=== PATIENT | male | born 1950 | race African-American/Black ===

== ENCOUNTER 2023-03-07 10:26 | Emergency (ER) | payer MEDICARE, MEDICAID ==
[~2023-03-07] VITALS: Ht 175.3 cm; Wt 73.9 kg
[2023-03-07 10:43] VITALS: BP 130/82; PULSE 106; RESP 16; TEMP 98.5; O2SAT 98
[2023-03-07] MEDS ORDERED: ACETAMINOPHEN 325MG TABLET PO ONE (11:45)
[2023-03-07] MEDS ORDERED: TOPUD MT (11:50)
== END 2023-03-07 12:34 | disposition home or self-care (01) ==
LOC: ER 10:26
DX: M25.512 Pain in left shoulder (principal); W07.XXXA Fall from chair, initial encounter; Y93.89 Activity, other specified; Y92.89 Other specified places as the place of occurrence of the external cause; Y99.8 Other external cause status
CPT/HCPCS: 73030; 99283

== ENCOUNTER 2024-01-22 10:14 | Emergency (ER) | payer MEDICARE, MEDICAID ==
[~2024-01-22] VITALS: Ht 172.7 cm; Wt 76.0 kg
[~2024-01-22 10:14] MED LIST: TOPUD MT
[2024-01-22 10:16] VITALS: O2SAT 100
[2024-01-22] MEDS: ACETAMINOPHEN 325MG TABLET PO ONE (11:39)
[2024-01-22] MEDS: LIDOCAINE 5% PATCH TOP STA (11:40)
[2024-01-22] MEDS ORDERED: METH-773 MT (14:32)
[2024-01-22] MEDS ORDERED: LIDO700A15 TP (14:32)
[2024-01-22 14:42] VITALS: BP 136/75; PULSE 78; RESP 18; TEMP 98.4
== END 2024-01-22 14:58 | disposition home or self-care (01) ==
LOC: ER 10:14
DX: M54.41 Lumbago with sciatica, right side (principal)
CPT/HCPCS: 72131; 99284

== ENCOUNTER 2024-07-23 07:12 | Emergency (ER) | payer MEDICARE, MEDICAID ==
[~2024-07-23] VITALS: Ht 172.7 cm; Wt 74.0 kg
[~2024-07-23 07:12] MED LIST changes: +LIDO700A15 TP; +METH-773 MT
[2024-07-23 07:30] VITALS: O2SAT 99
[2024-07-23] MEDS ORDERED: METH-773 MT (09:27)
[2024-07-23] MEDS ORDERED: LIDO700A15 TP (09:27)
[2024-07-23 09:53] VITALS: BP 124/71; PULSE 81; RESP 16; TEMP 36.72516; O2SAT 99
== END 2024-07-23 10:16 | disposition home or self-care (01) ==
LOC: ER 07:12
DX: M25.511 Pain in right shoulder (principal); I10 Essential (primary) hypertension; Z79.899 Other long term (current) drug therapy
CPT/HCPCS: 73030; 99284

== ENCOUNTER 2024-10-06 15:36 | Emergency (ER) | payer MEDICAID, MEDICARE ==
[~2024-10-06] VITALS: Ht 172.7 cm; Wt 75.0 kg
[2024-10-06 15:39] VITALS: BP 161/85; PULSE 98; RESP 16; TEMP 36.8; O2SAT 98
[2024-10-06 15:43] VITALS: O2SAT 98
[2024-10-06] MEDS: ACETAMINOPHEN 500MG TABLET PO ONE (16:26)
[2024-10-06] MEDS: CYCLOBENZAPRINE 10MG TABLET PO ONE (16:27)
[2024-10-06] MEDS ORDERED: CYCL5TAB3 MT (18:35)
== END 2024-10-06 18:28 | disposition home or self-care (01) ==
LOC: ER 15:36
DX: S70.01XA Contusion of right hip, initial encounter (principal); Z79.899 Other long term (current) drug therapy; X58.XXXA Exposure to other specified factors, initial encounter; Y93.89 Activity, other specified; Y92.89 Other specified places as the place of occurrence of the external cause; Y99.8 Other external cause status
CPT/HCPCS: 72192; 99284